=== PATIENT | female | born 1950 | race Caucasian/White ===

== ENCOUNTER 2023-07-24 07:20 | Day surgery (SDC) | payer MEDICARE, OTHER ==
[~2023-07-24] VITALS: Ht 157.5 cm; Wt 57.4 kg
[2023-07-24] MEDS ORDERED: B-12 COMPL1000 MCG/2 (07:45)
[2023-07-24] MEDS ORDERED: CALCIUM 500 MG1 EAC2 (07:45)
[2023-07-24] MEDS ORDERED: UBID10 (07:46)
[2023-07-24] MEDS ORDERED: Vitamin D1000 UNI1 (07:46)
[2023-07-24] MEDS ORDERED: DHEA50 M2 (07:47)
[2023-07-24] MEDS ORDERED: GLUCHON (07:47)
[2023-07-24] MEDS ORDERED: Estrace Vagin42.5 GM (07:47)
[2023-07-24 09:02] VITALS: BP 110/62
== END 2023-07-24 09:02 | disposition home or self-care (01) ==
LOC: ORSCSDS 07:20
PROVIDERS: Surgery
PROC: 0DJD8ZZ Inspection of Lower Intestinal Tract, Via Natural or Artificial Opening Endoscopic (ICD-10-PCS; principal; 2023-07-24 08:30)
DX: Z12.11 Encounter for screening for malignant neoplasm of colon (principal); R19.5 Other fecal abnormalities
CPT/HCPCS: J2704; J7120

== ENCOUNTER → 2024-08-07 | Outpatient (CLI) | payer MEDICARE, OTHER ==
[~2024-08-07] MED LIST: B-12 COMPL1000 MCG/2; CALCIUM 500 MG1 EAC2; DHEA50 M2; Estrace Vagin42.5 GM; GLUCHON; UBID10; Vitamin D1000 UNI1
[2024-08-08 12:40] LABS: Protein, Urine Quantitative 7.2 mg/dL (0.0-11.9)
[2024-08-08 12:43] LABS: Microalbumin, Urine Quant. 6.4 mg/L (0.000-20.000)
== END | disposition home or self-care (01) ==
LOC: LAB 10:23 → LAB SHORT 10:23 → LAB FUT 08-03 10:00
PROVIDERS: Internal Medicine Nephrology
DX: N18.2 Chronic kidney disease, stage 2 (mild) (principal); D63.1 Anemia in chronic kidney disease; N25.81 Secondary hyperparathyroidism of renal origin; E55.9 Vitamin D deficiency, unspecified; E78.00 Pure hypercholesterolemia, unspecified; D51.8 Other vitamin B12 deficiency anemias; D52.8 Other folate deficiency anemias; D59.9 Acquired hemolytic anemia, unspecified; R76.9 Abnormal immunological finding in serum, unspecified; R94.5 Abnormal results of liver function studies; R94.6 Abnormal results of thyroid function studies
CPT/HCPCS: 81050; 82043; 82570; 84156